=== PATIENT | male | born 1970 | race American Indian/Alaskan Native ===

== ENCOUNTER 2019-02-09 20:37 | Emergency (ER) | payer OTHER ==
--- NOTE | 2019-02-09 22:29 | XRay Report ---
CHEST 2 VIEWS INDICATION / CLINICAL INFORMATION: CP. COMPARISON: None available. FINDINGS: SUPPORT DEVICES: None. HEART / MEDIASTINUM: No significant abnormality. LUNGS / PLEURA: No significant pulmonary or pleural abnormality. .No pneumothorax. ADDITIONAL FINDINGS: No significant additional findings. IMPRESSION: 1. No acute findings. Signer Name: Iron Zeng MD Signed: 02/09/2019 10:25 PM Workstation Name: [id number]
--- NOTE | 2019-02-09 22:36 | Emergency Department Report ---
ED Palpitations HPI - General Chief Complaint: Arrhythmia/Palpitations Stated Complaint: CHEST PAIN Time Seen by Provider: 02/09/19 21:09 Source: EMS Mode of arrival: Stretcher Limitations: No Limitations - History of Present Illness Initial Comments: Patient is a 48-year-old male presents emergency room with complaints of palpitations that began 2 hours prior to arrival. Patient states that he also has chest pain described as an intermittent squeezing sensation. Patient states that he is also had intermittent tingling in the bilateral hands. He denies any pleuritic chest pain, shortness of breath, lower extremity edema, recent surgery, recent travel. States he has had this in the past and was diagnosed with angina at another hospital. States that he has a past medical history of angina and gout. He denies any allergies medications. He states that his blood pressure is only only when he goes emergency room. He states his father had a ID. - Related Data Allergies Allergy/AdvReac Type Severity Reaction Status Date / Time No Known Allergies Allergy Verified 02/10/19 03:28 ED Review of Systems ROS: Stated complaint: CHEST PAIN Other details as noted in HPI Comment: All other systems reviewed and negative ED Past Medical Hx - Past Medical History Previous Medical History?: Yes Additional medical history: Angina and gout - Surgical History Past Surgical History?: No - Social History Smoking Status: Light Tobacco Smoker Substance Use Type: Alcohol ED Physical Exam - General Limitations: No Limitations General appearance: alert, in no apparent distress - Head Head exam: Present: atraumatic, normocephalic - Eye Eye exam: Present: normal appearance - ENT ENT exam: Present: mucous membranes moist - Respiratory Respiratory exam: Present: normal lung sounds bilaterally. Absent: respiratory distress, wheezes, rales, rhonchi, stridor, chest wall tenderness, accessory muscle use, decreased breath sounds, prolonged expiratory - Cardiovascular Cardiovascular Exam: Present: regular rate, normal rhythm, normal heart sounds. Absent: systolic murmur, diastolic murmur, rubs, gallop - GI/Abdominal GI/Abdominal exam: Present: soft, normal bowel sounds. Absent: distended, tenderness, guarding, rebound, rigid - Neurological Exam Neurological exam: Present: alert, oriented X3 - Psychiatric Psychiatric exam: Present: normal affect, normal mood - Skin Skin exam: Present: warm, dry, intact ED Course Vital Signs 02/09/19 02/09/1919 20:41 20:46 21:46 Temperature 98.7 F Pulse Rate 106 H 96 H 88 Respiratory 12 20 13 Rate Blood Pressure 173/95 173/95 150/73 Blood Pressure 173/95 [Left] O2 Sat by Pulse 99 98 97 Oximetry 02/09/19 02/09/19 02/09/19 22:16 22:30 23:30 Temperature Pulse Rate 94 H 88 87 Respiratory 13 19 18 Rate Blood Pressure 148/80 148/80 153/86 Blood Pressure [Left] O2 Sat by Pulse 96 95 97 Oximetry 02/09/19 02/10/19 02/10/19 23:38 02:00 02:16 Temperature Pulse Rate 89 85 77 Respiratory 19 17 10 L Rate Blood Pressure 153/86 134/72 134/72 Blood Pressure [Left] O2 Sat by Pulse 95 96 98 Oximetry 02/10/19 03:44 Temperature 98 F Pulse Rate 88 Respiratory 14 Rate Blood Pressure Blood Pressure 128/69 [Left] O2 Sat by Pulse 99 Oximetry ED Medical Decision Making - Lab Data Result diagrams: 02/09/19 22:31 02/09/19 22:31 Lab Results 02/09/19 02/09/19 02/09/19 Range/Units 22:31 22:31 22:31 WBC 12.3 H (4.5-11.0) K/mm3 RBC 4.69 (3.65-5.03) M/mm3 Hgb 14.3 (11.8-15.2) gm/dl Hct 42.6 (35.5-45.6) % MCV 91 (84-94) fl MCH 30 (28-32) pg MCHC 34 (32-34) % RDW 13.8 (13.2-15.2) % Plt Count 195 (140-440) K/mm3 D-Dimer (0-234) ng/mlDDU Sodium 142 (137-145) mmol/L Potassium 3.8 (3.6-5.0) mmol/L Chloride 105.7 (98-107) mmol/L Carbon Dioxide 25 (22-30) mmol/L Anion Gap 15 mmol/L BUN 14 (9-20) mg/dL Creatinine 0.7 L (0.8-1.5) mg/dL Estimated GFR > 60 ml/min BUN/Creatinine Ratio 20 % Glucose 111 H (75-100) mg/dL Calcium 9.2 (8.4-10.2) mg/dL Phosphorus 2.40 L (2.5-4.5) mg/dL Total Bilirubin 0.40 (0.1-1.2) mg/dL AST 24 (5-40) units/L ALT 26 (7-56) units/L Alkaline Phosphatase 48 (35-129) units/L Total Creatine Kinase 220 H (55-170) units/L Troponin T < 0.010 (0.00-0.029) ng/mL Total Protein 7.8 (6.3-8.2) g/dL Albumin 4.1 (3.9-5) g/dL Albumin/Globulin Ratio 1.1 % TSH (0.270-4.200) mlU/mL 02/09/19 02/09/19 02/10/19 Range/Units 22:31 22:31 02:36 WBC (4.5-11.0) K/mm3 RBC (3.65-5.03) M/mm3 Hgb (11.8-15.2) gm/dl Hct (35.5-45.6) % MCV (84-94) fl MCH (28-32) pg MCHC (32-34) % RDW (13.2-15.2) % Plt Count (140-440) K/mm3 D-Dimer < 135.00 (0-234) ng/mlDDU Sodium (137-145) mmol/L Potassium (3.6-5.0) mmol/L Chloride (98-107) mmol/L Carbon Dioxide (22-30) mmol/L Anion Gap mmol/L BUN (9-20) mg/dL Creatinine (0.8-1.5) mg/dL Estimated GFR ml/min BUN/Creatinine Ratio % Glucose (75-100) mg/dL Calcium (8.4-10.2) mg/dL Phosphorus (2.5-4.5) mg/dL Total Bilirubin (0.1-1.2) mg/dL AST (5-40) units/L ALT (7-56) units/L Alkaline Phosphatase (35-129) units/L Total Creatine Kinase (55-170) units/L Troponin T < 0.010 (0.00-0.029) ng/mL Total Protein (6.3-8.2) g/dL Albumin (3.9-5) g/dL Albumin/Globulin Ratio % TSH 2.820 (0.270-4.200) mlU/mL - EKG Data EKG shows normal: sinus rhythm, intervals, ST-T waves Rate: normal - EKG Data 02/09/19 22:35 LAD LAFB no STEMI per Dr. Shelton 02/10/19 03:26 second EKG with no change - Radiology Data Radiology results: report reviewed CHEST 2 VIEWS INDICATION / CLINICAL INFORMATION: CP. COMPARISON: None available. FINDINGS: SUPPORT DEVICES: None. HEART / MEDIASTINUM: No significant abnormality. LUNGS / PLEURA: No significant pulmonary or pleural abnormality. .No pneumothorax. ADDITIONAL FINDINGS: No significant additional findings. IMPRESSION: 1. No acute findings. Signer Name: Iron Zeng MD Signed: 02/09/2019 10:25 PM Workstation Name: [id number] Transcribed By: SS Dictated By: Iron Zeng MD Electronically Authenticated By: Iron Zeng MD Signed Date/Time: 02/09/192224 DD/ 23 TD/TT: - Medical Decision Making Patient is a 48-year-old male presents emergency room with complaints of palpitations that began 2 hours prior to arrival. Patient states that he also has chest pain described as an intermittent squeezing sensation. Patient states that he is also had intermittent tingling in the bilateral hands. He denies any pleuritic chest pain, shortness of breath, lower extremity edema, recent surgery, recent travel. States he has had this in the past and was diagnosed with angina at another hospital. States that he has a past medical history of angina and gout. He denies any allergies medications. He states that his blood pressure is only only when he goes emergency room. He states his father had a ID. initial vitals with elevated HR and elevated BP which improved upon repeat. CBC is stable. d-dimer is negative. trop negative x2. TSH is normal. phosphorus is mildly decreased, repleted in the ED. CXR with no acute findings. pt is very low risk for VTE based on wells criteria. EKG with LAD, LAFB, NO STEMI. repeat E KG unchanged. heart score is 2, very low risk for cardiac event. pts face sheet was faxed to [facility] for close cardiology follow up as heart score equal to 2. pt evaluated by Dr. Shelton who agrees with treatment plan and discharge. advised pt to please avoid caffeine use. Please avoid marijuana use. Please increase your water intake. Follow-up with a manager poker in the next 2 days. Follow-up with your primary care doctor. Return to the emergency room for any new or worsening symptoms. - Differential Diagnosis ACS, PE, PTX, musculoskeletal, electrolyte, thyroid, GERD, PUD Critical care attestation.: If time is entered above; I have spent that time in minutes in the direct care of this critically ill patient, excluding procedure time. ED Disposition Clinical Impression: Palpitations, Atypical chest pain, Hypophosphatemia Disposition: DC-01 TO HOME OR SELFCARE Is pt being admited?: No Does the pt Need Aspirin: No Condition: Stable Instructions: Chest Pain (ED), Palpitations (ED) Additional Instructions: Please avoid caffeine use. Please avoid marijuana use. Please increase your water intake. Follow-up with a manager poker in the next 2 days. Follow-up with your primary care doctor. Return to the emergency room for any new or worsening symptoms. Referrals: PASTORA MELLO JR, MD [Primary Care Provider] - 2-3 Days [facility] [Provider Group] - 2-3 Days Time of Disposition: 03:19 Print Language: WALLISIAN
--- NOTE | 2019-02-09 22:46 | Event Note ---
Date of service: 02/09/19 Face to Face: This is a pleasant 48-year-old gentleman. This patient is not known to this provider previously. He does not have any formal chronic medical conditions that he is aware of. He presents to the ER with a complaint of chest wall palpitations, pressure, anxiety, now resolved. This started after consuming marijuana. The patient denies DVT and pulmonary embolism risk factors. He is low risk by well's criteria. His tachycardia has resolved and he is clinically sober at this time. His EKG is abnormal, with a left axis deviation, and left anterior fascicular block. Basic screening laboratory studies, including d- dimer are sent. Patient is counseled to discontinue cannabis consumption. Patient at low risk for major adverse event as per heart score risk stratification tool. If screening laboratory studies unremarkable, patient can follow-up with an outpatient asbestos worker. [facility] a policy where by patients who are at low risk for major adverse cardiac event may obtain an expedited outpatient follow-up to complete an outpatient cardiac risk stratification. Plan is to obtain EKG 2, troponin 2, observe on desk monitor, treat symptoms if and when they arrived, and if no emergent condition is identified, discharge patient to follow-up. Vital Signs 02/09/19 02/09/19 02/09/19 20:41 20:46 21:46 Temperature 98.7 F Pulse Rate 106 H 96 H 88 Respiratory 12 20 13 Rate Blood Pressure 173/95 173/95 150/73 Blood Pressure 173/95 [Left] O2 Sat by Pulse 99 98 97 Oximetry 02/09/19 22:16 Temperature Pulse Rate 94 H Respiratory 13 Rate Blood Pressure 148/80 Blood Pressure [Left] O2 Sat by Pulse 96 Oximetry
[2019-02-09 23:20] LABS: Hematocrit 42.6 % (35.5-45.6); Hemoglobin 14.3 gm/dl (11.8-15.2); Mean Corpuscular HGB Conc 34 % (32-34); Mean Corpuscular Volume 91 fl (84-94); Platelet Count 195 K/mm3 (140-440); Red Blood Count 4.69 M/mm3 (3.65-5.03); Red Cell Distribution Width 13.8 % (13.2-15.2)
[2019-02-10 02:51] LABS: Alanine Aminotransferase 26 units/L (7-56); Albumin 4.1 g/dL (3.9-5); BUN/Creatinine Ratio 20; Blood Urea Nitrogen 14 mg/dL (9-20); Calcium 9.2 mg/dL (8.4-10.2); Hemolysis Index 9
[2019-02-10] MEDS ORDERED: K-PHOS NEUTRAL 250 MG TAB PO ONE (03:21)
[2019-02-10 03:45] VITALS: BP 128/69
[2019-02-10 05:42] LABS: Basophils % (Manual) 0 % (0.0-1.8); Total Cells Counted 100
[2019-02-10 05:43] LABS: Platelet Estimate Consistent w Auto; Schistocytes Rare; Stomatocytes Rare; Target Cells Rare
== END 2019-02-10 03:43 | disposition home or self-care (01) ==
LOC: ED 20:37
DX: E83.39 Other disorders of phosphorus metabolism (principal); R07.89 Other chest pain; R00.2 Palpitations; F17.200 Nicotine dependence, unspecified, uncomplicated
CPT/HCPCS: 36415; 71046; 80053; 82550; 83735; 84100; 84443; 84484; 85007; 85025; 85379; 93005; 93010